=== PATIENT | male | born 1980 | race Hispanic/Latino ===

== ENCOUNTER 2022-01-04 02:37 | Emergency (ER) | payer SELFPAY ==
--- NOTE | 2022-01-04 04:41 | Emergency Department Report ---
ED Psych HPI - General Chief Complaint: Psych Stated Complaint: MH/SI/NEED MEDS Time Seen by Provider: 01/04/22 03:46 Source: patient, EMS Mode of arrival: Ambulatory - History of Present Illness Initial Comments: Patient has been out of his meds and he is feeling suicidal Complaint: suicidal ideation -: days(s) Associated Psychiatric Symptoms: depression, suicidal ideation History of same: Yes Quality: constant Context: not taking psychiatric - Related Data Allergies Allergy/AdvReac Type Severity Reaction Status Date / Time No Known Allergies Allergy Unverified 01/04/22 04:08 ED Review of Systems ROS: Stated complaint: MH/SI/NEED MEDS Other details as noted in HPI Constitutional: denies: chills, fever Eyes: denies: eye pain, eye discharge, vision change ENT: denies: ear pain, throat pain Respiratory: denies: cough, shortness of breath, wheezing Cardiovascular: denies: chest pain, palpitations Endocrine: no symptoms reported Gastrointestinal: denies: abdominal pain, nausea, diarrhea Genitourinary: denies: urgency, dysuria Musculoskeletal: denies: back pain, joint swelling, arthralgia Skin: denies: rash, lesions Neurological: denies: headache, weakness, paresthesias Psychiatric: denies: anxiety, depression Hematological/Lymphatic: denies: easy bleeding, easy bruising ED Past Medical Hx - Past Medical History Previous Medical History?: Yes Hx Hypertension: No Hx CVA: No Hx Psychiatric Treatment: Yes (Bipolar/Schizophrenia) - Social History Smoking Status: Unknown if ever smoked ED Physical Exam - General Limitations: No Limitations General appearance: alert, anxious - Head Head exam: Present: atraumatic, normocephalic - Eye Eye exam: Present: normal appearance - ENT ENT exam: Present: mucous membranes moist - Neck Neck exam: Present: normal inspection - Respiratory Respiratory exam: Present: normal lung sounds bilaterally. Absent: respiratory distress - Cardiovascular Cardiovascular Exam: Present: regular rate, normal rhythm. Absent: systolic murmur, diastolic murmur, rubs, gallop - GI/Abdominal GI/Abdominal exam: Present: soft, normal bowel sounds - Rectal Rectal exam: Present: deferred - Extremities Exam Extremities exam: Present: normal inspection - Back Exam Back exam: Present: normal inspection - Neurological Exam Neurological exam: Present: alert, oriented X3 - Psychiatric Psychiatric exam: Present: anxious, suicidal ideation - Skin Skin exam: Present: warm, dry, intact, normal color. Absent: rash ED Course Vital Signs 01/04/22 01/04/22 03:39 04:11 Temperature 98.2 F Pulse Rate 88 Respiratory 16 Rate Blood Pressure 140/88 [Right] O2 Sat by Pulse 100 100 Oximetry Critical care attestation.: If time is entered above; I have spent that time in minutes in the direct care of this critically ill patient, excluding procedure time. ED Disposition Clinical Impression: Suicidal ideation, Non-compliance Disposition: 30 STILL A PATIENT Is pt being admited?: No Does the pt Need Aspirin: No Condition: Stable Referrals: PRIMARY CARE, [Primary Care Provider] - 3-5 Days
[2022-01-04 04:48] LABS: Basophils # (Auto) 0.1 K/mm3 (0.0-0.1); Basophils % (Auto) 1.2 % (0.0-1.8); Eosinophils # (Auto) 0.3 K/mm3 (0.0-0.4); Eosinophils % (Auto) 4.6 % (0.0-4.3); Hematocrit 42.4 % (35.5-45.6); Lymphocytes % (Auto) 27.2 % (13.4-35.0); Mean Corpuscular HGB Conc 33 % (32-34); Mean Corpuscular Volume 83 fl (84-94); Monocytes # (Auto) 0.7 K/mm3 (0.0-0.8); Monocytes % (Auto) 9.4 % (0.0-7.3); Platelet Count 277 K/mm3 (140-440); Red Blood Count 5.13 M/mm3 (3.65-5.03); Red Cell Distribution Width 13.6 % (13.2-15.2)
[2022-01-04 05:25] LABS: Blood Urea Nitrogen 9 mg/dL (9-20); Calcium 9.4 mg/dL (8.4-10.2); Hemolysis Index 21
[2022-01-04 05:58] LABS: BUN/Creatinine Ratio 13
--- NOTE | 2022-01-04 09:44 | Consultation ---
History of Present Illness - Reason for Consult Consult date: 01/04/22 Reason for consult: get meds - History of Present Psychiatric Illness The patient was seen today. He is calm and cooperative. He says he came in to "get his meds." He says he has a history of bipolar and schizophrenia. The patient says he's here from [place], and hasn't had his Haldol Dec injection in over a month. He says "that's the source of my problems. I never intended to end up in the hospital." The patient says he had a panic attack at the hotel, and didn't sleep for several days. He says "I knew then, I needed to come in and get my meds." He denies SI/HI or hallucinations of any kind. He says he has not established an outpatient psychiatrist in [place]. REVIEW OF SYSTEMS Constitutional: Negative for weight loss ENT: Negative for stridor Respiratory: Negative for cough or hemoptysis All other systems reviewed and are negative MENTAL STATUS EXAMINATION General Appearance and Behavior: Age appropriate, good hygiene, wearing ap propriate clothes, good eye contact, calm, cooperative Cooperation: Participating/engaged Psychomotor Behavior: Psychomotor normal Mood: okay Affect and affective range: congruent with stated mood Thought Process: goal directed Thought Content: reality oriented Speech: Normal tone and pace Suicidal Ideation: Denies Homicidal Ideation: Denies Hallucinations: Denies Delusions: None elicited Impulse Control: Normal Insight and Judgment: Limited insight and judgment Memory: Normal Attention: Attentive Orientation: Alert, oriented x 3 Assessment and Plan (1) Hx Schizophrenia and bipolar Treatment Plan d/c 1013 Haldol Dec 50mg IM x 1, script also given for next dose until patient can establish outpatient psych in [place] Risks, benefits and alternatives of medications discussed with the patient, questions answered and consent obtained from patient. PSYCHOTHERAPY: Supportive psychotherapy provided MEDICAL: Per primary team DELIRIUM PRECAUTIONS: Please re-orient patient frequently, keep lights on during the day, and minimize benzodiazepines and opiates as these medications could worsen patient's confusion. SPLICING SUPERVISOR: Defer to primary DISPOSITION: Do not recommend acute psychiatric inpatient treatment recommend acute inpatient psychiatric hospitalization at this time. Project Administrative Assistant will provide patient with psychiatric outpatient resources and safety plan. The patient to establish outpatient psychiatrist in [place] Will sign off. Thank you for the consult. Please contact with any questions and/or concerns. Case staffed with Dr. Taylor Medications and Allergies Allergies Allergy/AdvReac Type Severity Reaction Status Date / Time No Known Allergies Allergy Unverified 01/04/22 04:08 Home Medications Medication Instructions Recorded Confirmed Last Taken Type Haldol Decanoate 50 mg IM QMONTH #1 syr 01/04/22 Unknown Rx Mental Status Exam - Vital signs Last Vital Signs Temp 98.2 F 01/04/22 03:39 Pulse 88 01/04/22 03:39 Resp 16 01/04/22 03:39 BP 140/88 01/04/22 03:39 Pulse Ox 100 01/04/22 04:11 Results Result Diagrams: 01/04/22 04:30 01/04/22 04:30 Abnormal lab results 01/04/22 01/04/22 01/04/22 Range/Units 04:30 04:30 04:30 RBC 5.13 H (3.65-5.03) M/mm3 MCV 83 L (84-94) fl MCH 27 L (28-32) pg Kleberg % (Auto) 9.4 H (0.0-7.3) % Eos % (Auto) 4.6 H (0.0-4.3) % Creatinine 0.7 L (0.8-1.3) mg/dL Glucose 102 H (75-100) mg/dL Salicylates < 0.3 L (2.8-20.0) mg/dL Acetaminophen (10.0-30.0) ug/mL 01/04/22 Range/Units 04:30 RBC (3.65-5.03) M/mm3 MCV (84-94) fl MCH (28-32) pg Kleberg % (Auto) (0.0-7.3) % Eos % (Auto) (0.0-4.3) % Creatinine (0.8-1.3) mg/dL Glucose (75-100) mg/dL Salicylates (2.8-20.0) mg/dL Acetaminophen 5.0 L (10.0-30.0) ug/mL All other labs normal.
[2022-01-04] MEDS ORDERED: HALOPERIDOL DECANOATE 100 MG/1 ML INJ IM ONE (11:00)
[2022-01-04 12:50] VITALS: BP 138/78
== END 2022-01-04 12:49 | disposition home or self-care (01) ==
LOC: EEVIPCON 02:37 → ED 02:37
DX: R45.851 Suicidal ideations (principal); F31.9 Bipolar disorder, unspecified
CPT/HCPCS: 36415; 80048; 85025; 96372; 99284; J1631; 80320; G0480